=== PATIENT | female | born 1985 | race Two or more races ===

== ENCOUNTER 2025-08-14 17:23 | Emergency (ER) | payer SELFPAY ==
[2025-08-14 17:24] VITALS: BP 127/89; PULSE 116; RESP 18; TEMP 36.3; O2SAT 100
[2025-08-14 17:46] VITALS: BMI 24.0
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
== END 2025-08-14 18:00 ==
LOC: SERX 18:07
PROVIDERS: Emergency Provider Family Medicine
DX: Z02.89 Encounter for other administrative examinations (principal); R51.9 Headache, unspecified; V89.2XXA Person injured in unspecified motor-vehicle accident, traffic, initial encounter
CPT/HCPCS: 99281